=== PATIENT | female | born 1950 | race Caucasian/White ===

== ENCOUNTER 2020-09-28 15:46 | Inpatient (IN) ==
[2020-09-28] MEDS ORDERED: NS 1000 ML 1,000 ML ONE (16:21)
--- NOTE | 2020-09-28 16:33 | DR.DIZZY ---
HPI Time seen Time Seen by Provider: 09/28/20 16:33 PCP Primary Care Physician: DR. RENNY PERSON HPI Comment HPI Comment: PATIENT IS 70YR OLD FEMALE IN ER WITH COUGH, SOB, GENERALIZED WEAKNESS AND FEVER. PATIENT IS POSITIVE FOR COVID 19 VIRUS. SHE TOOK ANTIBIOTICS AND STERIOD AT HOME. CONDITION WORSE TODAY. HAVING GENERALIZED ACHES AND PAIN, 10/10. Complaint Chief Complaint Doctor Comments: GENERALIZED WEAKNESS, SOB, FEVER, COUGH AND COVID 19 VIRUS POSITIVE. Chief Complaint:: WEAKNESS, SHORT OF BREATH, FEVER, POSITIVE FOR COVID 09/21/2020 Self Treatment fo Chief Complaint: STEROIDS, ANTIBIOTICS, ZINC, TYLENOL COVID-19 Coronavirus risk:travel/contact w/high risk person: Yes Has patient experienced Coronavirus symptoms: Yes Coronavirus symptoms experienced: Fever, Coughing and Shortness of Breath Nurses Notes Reviewed Nurses Notes Review: Yes Source History Provided: Patient Mode of Arrival Mode of Arrival: Wheelchair Timing Onset of Chief Complaint: 09/21/20 Context Stroke Symptoms: Dizziness PMH PMH Past Medical History: Yes Past Medical History: Hypothyroidism Past Surgical History: Yes (UNKNOWN) Surgical History: Tonsillectomy Past Surgical History Comment: TUBAL, ADENOIDECTOMY Family History History of Family Medical Conditions: No Family Medical History Comment: PT UNABLE TO ANSWER Social History Does any household member use tobacco: No Do you use any recreational Drugs:: No Lives With: Spouse Lives Where: Home Infectious screening In the last 2 months have you had wt loss of >10#?: NO Have you had fever, night sweats or hemotysis?: No Have you traveled outside the country in the last 6 months?: No Isolation: Droplet ROS Review of Systems Constitutional: See HPI, Fever, Weakness, Fatigue and Loss of Appetite Eyes: No Symptoms Reported and See HPI ENTM: See HPI, Nose Discharge and Nose Congestion Respiratoy: See HPI, Moist Cough and Short of Breath; negative Wheezing Cardiovascular: No Symptoms Reported and See HPI; negative Chest Pain, Edema and Palpitations Gastrointestinal/Abdominal: No Symptoms Reported and See HPI; negative Abdominal Pain, Diarrhea, Nausea and Vomiting Genitourinary: No Symptoms Reported and See HPI; negative Discharge and Dysuria Neurological: See HPI, Headache and Weakness Musculoskeletal: See HPI, Back Pain and Muscle Pain Integumentary: Change in Color and Dryness; negative Rash and Juandice Hematologic/Lymphatic: See HPI and Easy Bruising; negative Swollen Glands Endocrine: See HPI and Decreased Appetite; negative Increased Thirst and Increased Urine Psychiatric: No Symptoms Reported and See HPI All Other Systems: Reviewed and Negative PE Vital Signs Vitals: Temperature 98.2 F Pulse Rate [Right Radial] 91 Pulse Rate 103 Respiratory Rate 18 Blood Pressure [Right Arm] 118/76 Blood Pressure 105/54 O2 Sat by Pulse Oximetry 83 General Limitations: No Limitations General Appearance: Alert and In No Apparent Distress Head Head Exam: Normal Inspection Eyes Eye exam: Normal Appearance and PERRL; negative Scleral Icterus and Conjunctival Injection Pupils: Regular, Round: Bilateral and Reactive: Bilateral Sclera/Conjunctival: Normal Inspection: Bilateral ENT ENT Exam: Normal Exam, Normal Oropharynx, Normal External Ear Exam and TM's Normal Bilaterally Neck Neck Exam: Normal Inspection, Full ROM and Trachea Midline; negative Tenderness and Lymphadenopathy Chest Chest Inspection: Normal Inspection and Symmetric Chest Wall Rise; negative Tenderness Respiratory Respiratory Exam: Normal Lung Sounds Bilat and Respiratory Distress; negative Accessory Muscle Use and Chest Wall Tenderness Respiratory Exam: Bilateral: Rhonchi and Lower: Rhonchi Cardiovascular Cardiovascular Exam: Regular Rate, Normal Rhythm and Normal Heart Sounds; negative Systolic Murmur and Diastolic Murmur Abdominal Exam Abdominal Exam: Normal Inspection, Normal Bowel Sounds and Soft; negative Tenderness Rectal Rectal Exam: Deferred Extremeties Extremities Exam: Normal Inspection, Full ROM and Normal Capillary Refill; negative Tenderness and Calf Tenderness Back Back Exam: Normal Inspection and Full ROM; negative (R) CVA Tenderness and (L) CVA Tenderness Neurologic Neurological Exam: Alert and Oriented X3 Psychiatric Psychiatric Exam: Normal Affect and Normal Mood Skin Skin Exam: Warm, Dry, Intact and Normal Color MDM Differential Diagnosis Differential Diagnosis: Dehydration, Electrolyte disorder, Myocardial infarction and Other (PNEUMONIA, UTI, CHF, COVID 19 VIRUS INFECTION.) ROR Labs Reviewed Laboratory Results Reviewed?: Yes Result Diagrams: 10/03/20 04:00 10/03/20 04:00 Laboratory: WBC 8.1 X10^3/uL (3.6-10.0) 09/28/20 16:30 RBC 4.00 X10^6/uL (3.5-5.4) 09/28/20 16:30 Hgb 11.4 g/dL (12.0-16.0) L 09/28/20 16:30 Hct 35.8 % (36.0-47.0) L 09/28/20 16:30 MCV 89.4 fL (80.0-100.0) 09/28/20 16:30 MCH 28.6 pg (27.0-34.0) 09/28/20 16: MCHC 32.0 g/dL (33.0-35.0) L 09/28/20 16:30 RDW 15.9 % (11.6-16.5) 09/28/20 16:30 Plt Count 275 X10^3/uL (150.0-450.0) 09/28/20 16:30 MPV 7.3 fL (7.4-11.0) L 09/28/20 16:30 Neut % (Auto) 78.3 % (42.0-75.0) H 09/28/20 16:30 Lymph % (Auto) 11.3 % (21.0-51.0) L 09/28/20 16:30 [place] % (Auto) 9.2 % (0.0-13.0) 09/28/20 16:30 Eos % (Auto) 1.1 % (0.9-2.9) 09/28/20 16:30 Baso % (Auto) 0.1 % (0.2-1.0) L 09/28/20 16:30 Neut # (Auto) 6.4 x10^3/uL (2.2-4.8) H 09/28/20 16:30 Lymph # (Auto) 0.9 X10^3/uL (1.3-2.9) L 09/28/20 16:30 [place] # (Auto) 0.7 x10^3/uL (0.3-0.8) 09/28/20 16:30 Eos # (Auto) 0.1 x10^3/uL (0.0-0.2) 09/28/20 16:30 Baso # (Auto) 0.0 X10^3/uL (0.0-0.1) 09/28/20 16:30 Absolute Nucleated RBC 0.0 /100WBC 09/28/20 16:30 D-Dimer 0.55 ug/ml (0.0-0.57) 09/28/20 18:11 Sample Site Right brachial 09/28/20 16:38 ABG pH 7.470 (7.35-7.45) H 09/28/20 16:38 ABG pCO2 46.0 mmHg (35.0-45.0) H 09/28/20 16:38 ABG pO2 42.0 mmHg (80.0-100.0) L* 09/28/20 16:38 ABG HCO3 33.5 mmol/L (22-26) H* 09/28/20 16:38 ABG O2 Saturation 81.0 % (90-100) L* 09/28/20 16:38 ABG Base Excess 8.7 mmol/L (-2.0-2.0) H 09/28/20 16:38 Lukas Test Na 09/28/20 16:38 A-a Gradient 50.0 mmHg 09/28/20 16:38 FiO2 21.0 09/28/20 16:38 Blood Gas Comments Nafisa well cb 09/28/20 16:38 Sodium 136 mmol/L (136-145) 09/28/20 16:30 Corrected Sodium TNP 09/28/20 16:30 Potassium 3.4 mmol/L (3.5-5.1) L 09/28/20 16:30 Chloride 100 mmol/L (98-107) 09/28/20 16:30 Carbon Dioxide 30.4 mmol/L (21-32) 09/28/20 16:30 BUN 24 mg/dL (7-18) H 09/28/20 16:30 Creatinine 0.76 mg/dL (0.55-1.02) 09/28/20 16:30 Est GFR (MDRD) Af Amer > 60 (>60) 09/28/20 16:30 Est GFR (MDRD) Non-Af > 60 (>60) 09/28/20 16:30 Glucose 105 mg/dL (65-99) H 09/28/20 16:30 Lactic Acid 1.3 mmol/L (0.4-2.0) 09/28/20 16:30 Calcium 9.0 mg/dL (8.5-10.1) 09/28/20 16:30 Corrected Calcium 10.0 mg/dL (8.5-10.1) 09/28/20 16:30 Ferritin 71 ng/mL (8-252) 09/28/20 16:30 Total Bilirubin 0.30 mg/dL (0.2-1.0) 09/28/20 16:30 AST 23 Units/L (15-37) 09/28/20 16:30 ALT 21 Units/L (12-78) 09/28/20 16:30 Alkaline Phosphatase 64 Units/L (46-116) 09/28/20 16:30 Creatine Kinase 21 Units/L (26-192) L 09/28/20 16:30 CK-MB (CK-2) < 1.0 ng/mL (0-4.0) 09/28/20 16:30 CK/CKMB % Calc 4.8 % (<4) 09/28/20 16:30 Troponin I < 0.02 ng/mL (0-1.5) 09/28/20 16:30 C-Reactive Protein 168.30 mg/L (0-3.0) H 09/28/20 16:30 Total Protein 6.7 g/dL (6.4-8.2) 09/28/20 16:30 Albumin 2.7 g/dL (3.4-5.0) L 09/28/20 16:30 Globulin 4.0 g/dL (2.5-4.5) 09/28/20 16:30 Albumin/Globulin Ratio 0.7 Ratio (1.1-2.1) L 09/28/20 16:30 SARS CoV-2 RNA Rapid ANDREA Positive (NEGATIVE) A 09/28/20 18:16 XRAY XRAY Interpreted by: Radiologist (REPORT NOTED AND DISCUSSED WITH PATIENT.) and Self EKG Rate: 99 Valentine: Normal Rhythm: NSR Block: None Hypertrophy: LAE ST: Nonsp Opioid Opioid Risk Tool Age (Charles box if 16-45): No Total: 0 Total Score Risk Category: Low Risk Copyright: [facility] predicting aberrant behaviors Diagnosis Discharge Problem: Hypoxia, COVID-19 virus infection Pneumonia Qualifiers: Pneumonia type: due to unspecified organism Laterality: bilateral Lung location: unspecified part of lung Qualified Code(s): J18.9 - Pneumonia, unspecified organism Instructions Instructions: Hyperglycemia, Kiou-lt-Asqd Home Oxygen Use, Adult Hand Washing, Uzte-bu-Lhpl Upper Respiratory Infection, Adult, Ackt-id-Iuwa Chronic Obstructive Pulmonary Disease, Cnro-kz-Uffv Droplet Precautions, Vscy-jt-Msjc Contact Precautions, Aryb-ij-Dlwq How to Use a Nebulizer, Adult Acute Respiratory Failure, Adult Blood Glucose Monitoring, Adult Community-Acquired Pneumonia, Adult, Ljbg-bp-Hera Forms: Precautions for COVID19 Patient Portal Social Distancing
[2020-09-28 16:42] LABS: BASOPHILS % (AUTO) 0.1 % (0.2-1.0); EOSINOPHILS # (AUTO) 0.1 x10^3/uL (0.0-0.2); EOSINOPHILS % (AUTO) 1.1 % (0.9-2.9); HEMATOCRIT 35.8 % (36.0-47.0); HEMOGLOBIN 11.4 g/dL (12.0-16.0); LYMPHOCYTES # (AUTO) 0.9 X10^3/uL (1.3-2.9); LYMPHOCYTES % (AUTO) 11.3 % (21.0-51.0); MEAN CORPUSCULAR HEMOGLOBIN 28.6 pg (27.0-34.0); MEAN CORPUSCULAR VOLUME 89.4 fL (80.0-100.0); MEAN PLATELET VOLUME 7.3 fL (7.4-11.0); MONOCYTES # (AUTO) 0.7 x10^3/uL (0.3-0.8); MONOCYTES % (AUTO) 9.2 % (0.0-13.0); NEUTROPHILS # (AUTO) 6.4 x10^3/uL (2.2-4.8); NEUTROPHILS % (AUTO) 78.3 % (42.0-75.0); PLATELET COUNT 275 X10^3/uL (150.0-450.0); RED CELL DISTRIBUTION WIDTH 15.9 % (11.6-16.5); WHITE BLOOD COUNT 8.1 X10^3/uL (3.6-10.0)
[2020-09-28 16:43] LABS: ABG BASE EXCESS 8.7 mmol/L (-2.0-2.0)
[2020-09-28 16:44] LABS: ABG HCO3 33.5 mmol/L (22-26)
--- NOTE | 2020-09-28 16:54 | RAD ---
HISTORYWEAKNESS, SHORT OF BREATH, FEVER, POSITIVE FOR COVID 09/21/2020STUDYCHEST, 1 VIEWCOMPARISONNone available.FINDINGSThe trachea is midline. The cardiac silhouette is enlarged. There abnormal, patchy, ground-glass, airspace, and interstitial opacities seen throughout the lung jarquin which would imply an active COVID-19 infection/pneumonia. Close interval radiographic follow-up is recommended to ensure complete resolution. The bony thorax is unremarkable.IMPRESSIONRadiographic findings of a widespread, relatively severe, COVID-19 infection/pneumonia.Electronically signed by: HARPER DELGADO III (Sep 28, 2020 16:52:44)
[2020-09-28 17:00] LABS: BLOOD UREA NITROGEN 24 mg/dL (7-18); CARBON DIOXIDE 30.4 mmol/L (21-32); CHLORIDE 100 mmol/L (98-107); CREATININE 0.76 mg/dL (0.55-1.02); SODIUM 136 mmol/L (136-145); TROPONIN I < 0.02 ng/mL (0-1.5); eGFR NON BLACK RACES > 60 (>60)
[2020-09-28] MEDS ORDERED: NS 1000 ML 1,000 ML IV SCH ×2 (17:00→21:42)
[2020-09-28 17:04] LABS: ALANINE AMINOTRANSFERASE 21 Units/L (12-78); ALBUMIN 2.7 g/dL (3.4-5.0); ALKALINE PHOSPHATASE 64 Units/L (46-116); ASPARTATE AMINO TRANSFERASE 23 Units/L (15-37); CKMB % 4.8 % (<4); CREATINE KINASE 21 Units/L (26-192); CREATINE KINASE MB < 1.0 ng/mL (0-4.0); TOTAL PROTEIN 6.7 g/dL (6.4-8.2)
[2020-09-28 17:06] LABS: LACTIC ACID 1.3 mmol/L (0.4-2.0)
[2020-09-28] MEDS ORDERED: LEVAQUIN PREMIX IV 750 MG 750 MG/150 ML BAG IV ONE ×2 (18:26→19:48)
[2020-09-28] MEDS ORDERED: SOLU-Medrol 125 MG VIAL IVP ONE (19:44)
[2020-09-28] MEDS ORDERED: SOLU-Medrol 125 MG VIAL ONE (19:47)
[2020-09-28] MEDS ORDERED: DUONEB 0.5 MG/3 MG (3 mL) NEB SCH (21:00)
[2020-09-28] MEDS ORDERED: TUSSIONEX PENNKINETIC SUSP PO PRN (21:42)
[2020-09-28] MEDS ORDERED: ZOFRAN INJ 4 MG VIAL ONE (21:45)
[2020-09-28] MEDS: ZOFRAN INJ 4 MG VIAL IVP PRN (21:50)
[2020-09-29] MEDS ORDERED: REMDESIVIR 200 MG in NS 250 ML IV 250 ML IV SCH ×2
[2020-09-29] MEDS: ZOSYN VIAL 3.375 GRAMS 3.375 G in NS 100 ML IV + SPIKE MINIBAG* 100 ML IV SCH ×3 (01:32→18:40)
[2020-09-29] MEDS: LOVENOX INJ 30 MG SYR SC SCH ×3 (01:32→21:05)
[2020-09-29] MEDS ORDERED: TYLENOL 325 MG TAB PO ONE (02:04)
[2020-09-29] MEDS: TYLENOL 325 MG TAB PO PRN (02:13)
[2020-09-29] MEDS: ASCORBIC ACID INJ MULTI-DOSE VIAL 1,500 MG in NS 100 ML IV 100 ML IV SCH ×4 (03:54→21:05)
[2020-09-29 04:08] LABS: BASOPHILS % (AUTO) 0.1 % (0.2-1.0); EOSINOPHILS % (AUTO) 0.1 % (0.9-2.9); HEMATOCRIT 33.1 % (36.0-47.0); HEMOGLOBIN 10.6 g/dL (12.0-16.0); LYMPHOCYTES # (AUTO) 0.4 X10^3/uL (1.3-2.9); LYMPHOCYTES % (AUTO) 7.3 % (21.0-51.0); MEAN CORPUSCULAR HEMOGLOBIN 28.6 pg (27.0-34.0); MEAN CORPUSCULAR VOLUME 89.2 fL (80.0-100.0); MEAN PLATELET VOLUME 7.6 fL (7.4-11.0); MONOCYTES # (AUTO) 0.2 x10^3/uL (0.3-0.8); MONOCYTES % (AUTO) 2.7 % (0.0-13.0); NEUTROPHILS # (AUTO) 4.9 x10^3/uL (2.2-4.8); NEUTROPHILS % (AUTO) 89.8 % (42.0-75.0); PLATELET COUNT 229 X10^3/uL (150.0-450.0); RED BLOOD COUNT 3.71 X10^6/uL (3.5-5.4); RED CELL DISTRIBUTION WIDTH 16.2 % (11.6-16.5); WHITE BLOOD COUNT 5.5 X10^3/uL (3.6-10.0)
[2020-09-29 04:20] VITALS: BMI 26.5
[2020-09-29 04:29] LABS: ALANINE AMINOTRANSFERASE 16 Units/L (12-78); ALBUMIN 2.4 g/dL (3.4-5.0); ALKALINE PHOSPHATASE 56 Units/L (46-116); ASPARTATE AMINO TRANSFERASE 18 Units/L (15-37); BLOOD UREA NITROGEN 14 mg/dL (7-18); CALCIUM 8.2 mg/dL (8.5-10.1); CARBON DIOXIDE 29.7 mmol/L (21-32); CHLORIDE 102 mmol/L (98-107); COR CA(FOR HYPOALB) 9.5 mg/dL (8.5-10.1); COR NA(FOR HYPERGLY) 140 mmol/L (136-145); CREATININE 0.71 mg/dL (0.55-1.02); SODIUM 138 mmol/L (136-145); TOTAL PROTEIN 6.2 g/dL (6.4-8.2); TROPONIN I < 0.02 ng/mL (0-1.5); eGFR NON BLACK RACES > 60 (>60)
[2020-09-29] MEDS ORDERED: SOLU-Medrol 40 MG VIAL IVP SCH ×2 (06:00→09:00)
[2020-09-29] MEDS ORDERED: HumuLIN R SC PRN (08:38)
--- NOTE | 2020-09-29 08:41 | DR.H&P ---
H&P History & Physical for Day of: H&P Date: 09/29/20 Chief Complaint Chief Complaint: shortness of breath, weakness Allergies Allergies Allergy/AdvReac Type Severity Reaction Status Date / Time oxycodone Allergy Verified 09/28/20 19:21 zolpidem [From Ambien] Allergy Verified 09/28/20 19:21 History of Present Illness History of Present Illness: Ms. Jessica is a 70y/o female with a PMH of chronic pain disorder, anxiety and hypothyroidism presented with weakness, SOB and fever. She tested positive for COVID on 09/21/20. She completed a course of abx and steroids but reports her symptoms were gradually worsening. She was having difficulty breathing yesterday so decided to come to the ED. She is currently on non-rebreather O2, sats > 90%. She appears comfortable in bed with no labored breathing. She does not use O2 at home. She reports decreased appetite, denies N/V/D. ED work-up - CXR: severe bilateral pulmonary infiltrates suggestive of COVID-19 infection - D-dimer (-) COVID-19 (+) - Labs: WBC 5.5 Hgb 10.6 Trop x 3 (-) CRP 168 AB.47/46/42/33 on room air, sats 81% She received a dose of Zosyn, remdesivir and solumedrol. Plan: Continue Remdesivir and Zosyn. Continue telemetry monitoring. Repeat CXR today. Echo ordered to eval LV function. Stop IVF. Will give one dose of lasix due to diffuse crackles on lung exam. Start decadron, vitamin support and DVT Ppx. Continue aggressive pulmonary toilet with bronchodilators. Wean O2 as tolerated, keep sats > 92%. Resume home medications. 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 Surgery and Tonsillectomy Family History Family Medical History: Diabetes Mellitus, Cancer, [place], Coronary Artery Disease, Heart Failure, Sudden Cardiac and Hypertension Social History Does patient currently use any type of tobacco product: No Have you used tobacco products in the last 12 months: No Type of Tobacco Use: None Does any household member use tobacco: No Alcohol Use: None Drug Use: None Prescription drug monitoring program results: PDMP reviewed and no concerns identified Medications Home Medications: oxycodone Allergy (Verified 09/28/20 19:21) zolpidem [From Ambien] Allergy (Verified 09/28/20 19:21) Labs Result Diagrams: 09/29/20 03:55 09/29/20 03:55 Labs: Laboratory WBC 5.5 X10^3/uL (3.6-10.0) 09/29/20 03:55 RBC 3.71 X10^6/uL (3.5-5.4) 09/29/20 03:55 Hgb 10.6 g/dL (12.0-16.0) L 09/29/20 03:55 Hct 33.1 % (36.0-47.0) L 09/29/20 03:55 MCV 89.2 fL (80.0-100.0) 09/29/20 03:55 MCH 28.6 pg (27.0-34.0) 09/29/20 03:55 MCHC 32.0 g/dL (33.0-35.0) L 09/29/20 03:55 RDW 16.2 % (11.6-16.5) 09/29/20 03:55 Plt Count 229 X10^3/uL (150.0-450.0) 09/29/20 03:55 MPV 7.6 fL (7.4-11.0) 09/29/20 03:55 Neut % (Auto) 89.8 % (42.0-75.0) H 09/29/20 03:55 Lymph % (Auto) 7.3 % (21.0-51.0) L 09/29/20 03:55 [place] % (Auto) 2.7 % (0.0-13.0) 09/29/20 03:55 Eos % (Auto) 0.1 % (0.9-2.9) L 09/29/20 03:55 Baso % (Auto) 0.1 % (0.2-1.0) L 09/29/20 03:55 Neut # (Auto) 4.9 x10^3/uL (2.2-4.8) H 09/29/20 03:55 Lymph # (Auto) 0.4 X10^3/uL (1.3-2.9) L 09/29/20 03:55 [place] # (Auto) 0.2 x10^3/uL (0.3-0.8) L 09/29/20 03:55 Eos # (Auto) 0.0 x10^3/uL (0.0-0.2) 09/29/20 03:55 Baso # (Auto) 0.0 X10^3/uL (0.0-0.1) 09/29/20 03:55 Absolute Nucleated RBC 0.1 /100WBC 09/29/20 03:55 D-Dimer 0.55 ug/ml (0.0-0.57) 09/28/20 18:11 Sample Site Right brachial 09/28/20 16:38 ABG pH 7.470 (7.35-7.45) H 09/28/20 16:38 ABG pCO2 46.0 mmHg (35.0-45.0) H 09/28/20 16:38 ABG pO2 42.0 mmHg (80.0-100.0) L* 09/28/20 16:38 ABG HCO3 33.5 mmol/L (22-26) H* 09/28/20 16:38 ABG O2 Saturation 81.0 % (90-100) L* 09/28/20 16:38 ABG Base Excess 8.7 mmol/L (-2.0-2.0) H 09/28/20 16:38 Lukas Test Na 09/28/20 16:38 A-a Gradient 50.0 mmHg 09/28/20 16:38 FiO2 21.0 09/28/20 16:38 Blood Gas Comments Nafisa well cb 09/28/20 16:38 Sodium 138 mmol/L (136-145) 09/29/20 03:55 Corrected Sodium 140 mmol/L (136-145) 09/29/20 03:55 Potassium 4.2 mmol/L (3.5-5.1) 09/29/20 03:55 Chloride 102 mmol/L (98-107) 09/29/20 03:55 Carbon Dioxide 29.7 mmol/L (21-32) 09/29/20 03:55 BUN 14 mg/dL (7-18) 09/29/20 03:55 Creatinine 0.71 mg/dL (0.55-1.02) 09/29/20 03:55 Est GFR (MDRD) Af Amer > 60 (>60) 09/29/20 03:55 Est GFR (MDRD) Non-Af > 60 (>60) 09/29/20 03:55 Glucose 170 mg/dL (65-99) H 09/29/20 03:55 Lactic Acid 1.3 mmol/L (0.4-2.0) 09/28/20 16:30 Calcium 8.2 mg/dL (8.5-10.1) L 09/29/20 03:55 Corrected Calcium 9.5 mg/dL (8.5-10.1) 09/29/20 03:55 Ferritin 71 ng/mL (8-252) 09/28/20 16:30 Total Bilirubin 0.20 mg/dL (0.2-1.0) 09/29/20 03:55 AST 18 Units/L (15-37) 09/29/20 03:55 ALT 16 Units/L (12-78) 09/29/20 03:55 Alkaline Phosphatase 56 Units/L (46-116) 09/29/20 03:55 Creatine Kinase 21 Units/L (26-192) L 09/28/20 16:30 CK-MB (CK-2) < 1.0 ng/mL (0-4.0) 09/28/20 16:30 CK/CKMB % Calc 4.8 % (<4) 09/28/20 16:30 Troponin I < 0.02 ng/mL (0-1.5) 09/29/20 03:55 C-Reactive Protein 168.30 mg/L (0-3.0) H 09/28/20 16:30 Total Protein 6.2 g/dL (6.4-8.2) L 09/29/20 03:55 Albumin 2.4 g/dL (3.4-5.0) L 09/29/20 03:55 Globulin 3.8 g/dL (2.5-4.5) 09/29/20 03:55 Albumin/Globulin Ratio 0.6 Ratio (1.1-2.1) L 09/29/20 03:55 SARS CoV-2 RNA Rapid ANDREA Positive (NEGATIVE) A 09/28/20 18:16 Review of Systems Constitutional: Fever, Weakness and Malaise Eyes: No Symptoms Reported ENT: Nose Congestion Respiratory: Cough, Shortness of Breath, SOB with Excertion and Sputum Cardiovascular: No Symptoms Reported Gastrointestinal: No Symptoms Reported Genitourinary: No Symptoms Reported Musculoskeletal: Back Pain Skin: No Symptoms Reported Neurological: No Symptoms Reported Physical Exam Vital Signs: Temperature 97.9 F Pulse Rate [Right Radial] 78 Pulse Rate 82 Respiratory Rate 35 Blood Pressure [Right Arm] 140/65 Blood Pressure 105/54 O2 Sat by Pulse Oximetry 97 Oriented: Normal Eyes: Normal Ear: Normal Nose: Normal Throat: Normal Respiratory: Diminished Throughout and Rales Throughout Cardiovascular: Normal Auscultation: Bowel Sounds: Normal Palpation: Normal Tenderness: Normal Skin: Normal Musculoskeletal: Normal Psychiatric: Anxiety Mood Description: Anxious Affect: Anxious Speech Pattern: Clear and Appropriate Assessment/Plan (1) Acute respiratory failure with hypoxia: Status: Acute (2) Pneumonia due to COVID-19 virus: Status: Acute (3) Hypothyroidism: Qualifiers: Hypothyroidism type: unspecified Qualified Code(s): E03.9 - Hypothyroidism, unspecified Status: Acute (4) Hyperglycemia: Status: Acute (5) Anemia: Qualifiers: Anemia type: unspecified type Qualified Code(s): D64.9 - Anemia, u nspecified Status: Acute (6) Chronic anxiety: Status: Acute Review H&P Reviewed: Yes Patient was examined?: Yes
[2020-09-29] MEDS ORDERED: PEPCID TAB 20 MG PO SCH (09:00)
[2020-09-29] MEDS ORDERED: VITAMIN D (1.25MG) PO SCH (09:00)
[2020-09-29] MEDS ORDERED: VITAMIN A PO SCH (09:00)
[2020-09-29] MEDS ORDERED: VSL#3 PO SCH (09:00)
[2020-09-29] MEDS ORDERED: LASIX IVP SCH (09:00)
[2020-09-29] MEDS: DECADRON TAB PO SCH (09:10)
[2020-09-29] MEDS: ZINC SULFATE PO SCH ×2 (09:10→21:05)
[2020-09-29] MEDS: LIPITOR TAB 40 MG PO SCH (09:12)
[2020-09-29] MEDS: ROBITUSSIN DM PO SCH ×4 (09:13→21:05)
[2020-09-29] MEDS: TRICOR TAB 160 MG PO SCH (09:13)
[2020-09-29] MEDS: PULMICORT NEB TX 0.5 MG NEB SCH (10:10)
[2020-09-29] MEDS: DUONEB 0.5 MG/3 MG (3 mL) NEB SCH ×3 (10:10→17:15)
[2020-09-29] MEDS: CELEXA PO SCH (14:16)
[2020-09-29] MEDS: NORCO 10/325 TAB PO PRN (14:20)
--- NOTE | 2020-09-29 16:09 | RAD ---
HISTORYCOVID, HYPOXIA, RALES ON EXAMSTUDYCHEST x-ray, 1 VIEWCOMPARISONX-ray 09/28/2020FINDINGSBilateral pneumonia is similar to prior study. There is diminished inspiration compared to prior study. Heart is normal in size. No pneumothorax or pleural effusion is seen.IMPRESSIONBilateral pneumonia is similar to prior study.Electronically signed by: Jose Powell (Sep 29, 2020 16:07:17)
[2020-09-29] MEDS: XANAX PO PRN (21:05)
[2020-09-29] MEDS: SINEquan PO SCH (21:05)
[2020-09-29] MEDS: ZOFRAN INJ 4 MG VIAL IVP PRN (22:09)
[2020-09-29] MEDS ORDERED: IVERMECTIN PO ONE (22:17)
[2020-09-29] MEDS: REMDESIVIR 100 MG in NS 250 ML IV 250 ML IV SCH (22:43)
[2020-09-30] MEDS: DUONEB 0.5 MG/3 MG (3 mL) NEB SCH ×5 (02:07→20:00)
[2020-09-30] MEDS: PULMICORT NEB TX 0.5 MG NEB SCH ×3 (02:08→20:00)
[2020-09-30] MEDS: ASCORBIC ACID INJ MULTI-DOSE VIAL 1,500 MG in NS 100 ML IV 100 ML IV SCH ×2 (02:32→09:28)
[2020-09-30] MEDS: NORCO 10/325 TAB PO PRN ×2 (02:32→17:43)
[2020-09-30] MEDS: ZOSYN VIAL 3.375 GRAMS 3.375 G in NS 100 ML IV + SPIKE MINIBAG* 100 ML IV SCH ×2 (04:08→09:00)
[2020-09-30 05:58] LABS: ABG BASE EXCESS 6.7 mmol/L (-2.0-2.0)
[2020-09-30 05:59] LABS: ABG HCO3 32.4 mmol/L (22-26)
[2020-09-30 06:26] LABS: BASOPHILS % (AUTO) 0.2 % (0.2-1.0); EOSINOPHILS % (AUTO) 0.1 % (0.9-2.9); HEMATOCRIT 28.5 % (36.0-47.0); HEMOGLOBIN 9.3 g/dL (12.0-16.0); LYMPHOCYTES # (AUTO) 0.8 X10^3/uL (1.3-2.9); LYMPHOCYTES % (AUTO) 7.8 % (21.0-51.0); MEAN CORPUSCULAR HEMOGLOBIN 28.9 pg (27.0-34.0); MEAN CORPUSCULAR HGB CONC 32.5 g/dL (33.0-35.0); MEAN CORPUSCULAR VOLUME 88.9 fL (80.0-100.0); MEAN PLATELET VOLUME 7.6 fL (7.4-11.0); MONOCYTES # (AUTO) 0.7 x10^3/uL (0.3-0.8); NEUTROPHILS # (AUTO) 8.2 x10^3/uL (2.2-4.8); NEUTROPHILS % (AUTO) 84.9 % (42.0-75.0); PLATELET COUNT 284 X10^3/uL (150.0-450.0); RED BLOOD COUNT 3.21 X10^6/uL (3.5-5.4); RED CELL DISTRIBUTION WIDTH 16.3 % (11.6-16.5); WHITE BLOOD COUNT 9.7 X10^3/uL (3.6-10.0)
[2020-09-30 06:39] LABS: BLOOD UREA NITROGEN 13 mg/dL (7-18); CARBON DIOXIDE 29.6 mmol/L (21-32); CHLORIDE 106 mmol/L (98-107); COR NA(FOR HYPERGLY) 141 mmol/L (136-145); CREATININE 0.69 mg/dL (0.55-1.02); SODIUM 141 mmol/L (136-145); eGFR NON BLACK RACES > 60 (>60)
--- NOTE | 2020-09-30 06:56 | RAD ---
HISTORYFollow-up COVID-19STUDYChest AP [id number]/30/2020FINDINGSThe heart is upper limits normal in size. No congestive heart failure is noted. Diffuse bilateral interstitial, ground-glass and alveolar infiltrates are again identified not significantly changed from the prior examination considering a difference in film technique. No pleural effusions are identified. Bony thorax is unremarkable.IMPRESSIONNo significant change from the prior examinationElectronically signed by: ZACHARY RAY (Sep 30, 2020 06:54:20)
[2020-09-30] MEDS: CELEXA PO SCH (09:30)
[2020-09-30] MEDS: ZINC SULFATE PO SCH ×2 (09:30→20:47)
[2020-09-30] MEDS: VITAMIN D3 125 mcg (5,000 UNITS) PO SCH (09:37)
[2020-09-30] MEDS: LOVENOX INJ 30 MG SYR SC SCH ×2 (09:37→20:48)
[2020-09-30] MEDS: SYNTHROID 100 mcg TAB PO SCH (09:38)
[2020-09-30] MEDS: ROBITUSSIN DM PO SCH ×4 (09:38→20:49)
[2020-09-30] MEDS: DECADRON TAB PO SCH (09:38)
[2020-09-30] MEDS: TRICOR TAB 160 MG PO SCH (09:39)
[2020-09-30] MEDS: PriLOSEC PO SCH (09:39)
[2020-09-30] MEDS: VITAMIN A PO SCH (09:40)
[2020-09-30] MEDS: LIPITOR TAB 40 MG PO SCH (09:42)
[2020-09-30] MEDS ORDERED: IVERMECTIN PO ONE (11:32)
[2020-09-30] MEDS ORDERED: IVERMECTIN PO NR (14:00)
[2020-09-30] MEDS: ASCORBIC ACID INJ MULTI-DOSE VIAL 1,500 MG in NS 50 ML IV 50 ML IV SCH ×2 (16:00→20:46)
[2020-09-30] MEDS: ZOSYN VIAL 3.375 GRAMS 3.375 G in NS 50 ML IV + SPIKE MINIBAG* 50 ML IV SCH ×2 (17:42→21:06)
[2020-09-30] MEDS ORDERED: MAALOX or MYLANTA ONE (20:45)
[2020-09-30] MEDS: SINEquan PO SCH (20:48)
[2020-09-30] MEDS: MAALOX or MYLANTA PO PRN (20:49)
[2020-09-30] MEDS: REMDESIVIR 100 MG in NS 250 ML IV 250 ML IV SCH (21:06)
[2020-10-01] MEDS: ZOFRAN INJ 4 MG VIAL IVP PRN (00:01)
[2020-10-01] MEDS: XANAX PO PRN (00:18)
[2020-10-01] MEDS: ASCORBIC ACID INJ MULTI-DOSE VIAL 1,500 MG in NS 50 ML IV 50 ML IV SCH ×4 (02:43→22:22)
[2020-10-01] MEDS: ZOSYN VIAL 3.375 GRAMS 3.375 G in NS 50 ML IV + SPIKE MINIBAG* 50 ML IV SCH ×3 (05:38→22:24)
[2020-10-01] MEDS: NORCO 10/325 TAB PO PRN ×2 (05:55→22:25)
[2020-10-01 06:16] LABS: BASOPHILS % (AUTO) 0 % (0.2-1.0); HEMATOCRIT 28.5 % (36.0-47.0); HEMOGLOBIN 9.5 g/dL (12.0-16.0); LYMPHOCYTES # (AUTO) 0.9 X10^3/uL (1.3-2.9); LYMPHOCYTES % (AUTO) 8.6 % (21.0-51.0); MEAN CORPUSCULAR HEMOGLOBIN 29.8 pg (27.0-34.0); MEAN CORPUSCULAR HGB CONC 33.5 g/dL (33.0-35.0); MEAN CORPUSCULAR VOLUME 89.2 fL (80.0-100.0); MEAN PLATELET VOLUME 7.5 fL (7.4-11.0); MONOCYTES # (AUTO) 0.7 x10^3/uL (0.3-0.8); MONOCYTES % (AUTO) 6.5 % (0.0-13.0); NEUTROPHILS # (AUTO) 8.5 x10^3/uL (2.2-4.8); NEUTROPHILS % (AUTO) 84.9 % (42.0-75.0); PLATELET COUNT 286 X10^3/uL (150.0-450.0); RED CELL DISTRIBUTION WIDTH 16.1 % (11.6-16.5); WHITE BLOOD COUNT 10.1 X10^3/uL (3.6-10.0)
[2020-10-01 06:19] LABS: BLOOD UREA NITROGEN 16 mg/dL (7-18); CALCIUM 8.3 mg/dL (8.5-10.1); CARBON DIOXIDE 29.3 mmol/L (21-32); CHLORIDE 106 mmol/L (98-107); CREATININE 0.62 mg/dL (0.55-1.02); SODIUM 141 mmol/L (136-145); eGFR NON BLACK RACES > 60 (>60)
[2020-10-01] MEDS ORDERED: ASCORBIC ACID INJ MULTI-DOSE VIAL IV ONE (08:22)
[2020-10-01] MEDS: ZINC SULFATE PO SCH ×2 (08:45→22:25)
[2020-10-01] MEDS: ROBITUSSIN DM PO SCH ×4 (08:45→22:24)
[2020-10-01] MEDS: LOVENOX INJ 30 MG SYR SC SCH ×2 (08:46→22:23)
[2020-10-01] MEDS: VITAMIN D3 125 mcg (5,000 UNITS) PO SCH (08:46)
[2020-10-01] MEDS: LIPITOR TAB 40 MG PO SCH (08:47)
[2020-10-01] MEDS: SYNTHROID 100 mcg TAB PO SCH (08:47)
[2020-10-01] MEDS: CELEXA PO SCH (08:48)
[2020-10-01] MEDS: DECADRON TAB PO SCH (08:48)
[2020-10-01] MEDS: TRICOR TAB 160 MG PO SCH (08:48)
[2020-10-01] MEDS: PriLOSEC PO SCH (08:49)
[2020-10-01] MEDS: VITAMIN A PO SCH (08:49)
[2020-10-01] MEDS: PULMICORT NEB TX 0.5 MG NEB SCH ×2 (09:24→21:00)
[2020-10-01] MEDS: DUONEB 0.5 MG/3 MG (3 mL) NEB SCH ×4 (09:24→21:00)
[2020-10-01] MEDS ORDERED: NS 500 ML IV 500 ML IV PRN (10:41)
[2020-10-01] MEDS: REMDESIVIR 100 MG in NS 250 ML IV 250 ML IV SCH (22:24)
[2020-10-01] MEDS: SINEquan PO SCH (22:24)
[2020-10-02] MEDS: MAALOX or MYLANTA PO PRN
[2020-10-02] MEDS: ZOFRAN INJ 4 MG VIAL IVP PRN ×3 (00:55→21:31)
[2020-10-02] MEDS: ASCORBIC ACID INJ MULTI-DOSE VIAL 1,500 MG in NS 50 ML IV 50 ML IV SCH ×4 (03:02→21:30)
[2020-10-02] MEDS: ZOSYN VIAL 3.375 GRAMS 3.375 G in NS 50 ML IV + SPIKE MINIBAG* 50 ML IV SCH ×3 (05:29→21:31)
[2020-10-02 06:35] LABS: BASOPHILS % (AUTO) 0.1 % (0.2-1.0); EOSINOPHILS % (AUTO) 0.1 % (0.9-2.9); HEMATOCRIT 27.2 % (36.0-47.0); LYMPHOCYTES # (AUTO) 0.9 X10^3/uL (1.3-2.9); MEAN CORPUSCULAR HEMOGLOBIN 29.2 pg (27.0-34.0); MEAN CORPUSCULAR HGB CONC 33.1 g/dL (33.0-35.0); MEAN CORPUSCULAR VOLUME 88.2 fL (80.0-100.0); MEAN PLATELET VOLUME 7.4 fL (7.4-11.0); MONOCYTES # (AUTO) 0.6 x10^3/uL (0.3-0.8); NEUTROPHILS % (AUTO) 81.8 % (42.0-75.0); PLATELET COUNT 271 X10^3/uL (150.0-450.0); RED BLOOD COUNT 3.09 X10^6/uL (3.5-5.4); RED CELL DISTRIBUTION WIDTH 16.4 % (11.6-16.5); WHITE BLOOD COUNT 8.5 X10^3/uL (3.6-10.0)
[2020-10-02 06:44] LABS: BLOOD UREA NITROGEN 17 mg/dL (7-18); CALCIUM 8.1 mg/dL (8.5-10.1); CARBON DIOXIDE 29.8 mmol/L (21-32); CHLORIDE 105 mmol/L (98-107); CREATININE 0.58 mg/dL (0.55-1.02); SODIUM 141 mmol/L (136-145); eGFR NON BLACK RACES > 60 (>60)
[2020-10-02] MEDS: VITAMIN D3 125 mcg (5,000 UNITS) PO SCH (09:00)
[2020-10-02] MEDS: ZINC SULFATE PO SCH ×2 (09:01→21:32)
[2020-10-02] MEDS: LOVENOX INJ 30 MG SYR SC SCH ×2 (09:01→21:33)
[2020-10-02] MEDS: SYNTHROID 100 mcg TAB PO SCH (09:01)
[2020-10-02] MEDS: DECADRON TAB PO SCH (09:01)
[2020-10-02] MEDS: TRICOR TAB 160 MG PO SCH (09:01)
[2020-10-02] MEDS: PriLOSEC PO SCH (09:01)
[2020-10-02] MEDS: ROBITUSSIN DM PO SCH ×4 (09:01→21:32)
[2020-10-02] MEDS: VITAMIN A PO SCH (09:02)
[2020-10-02] MEDS: CELEXA PO SCH (09:02)
[2020-10-02] MEDS: DUONEB 0.5 MG/3 MG (3 mL) NEB SCH ×4 (09:36→20:37)
[2020-10-02] MEDS: PULMICORT NEB TX 0.5 MG NEB SCH ×2 (09:36→20:37)
[2020-10-02] MEDS: LIPITOR TAB 40 MG PO SCH (09:43)
[2020-10-02] MEDS: TYLENOL 325 MG TAB PO PRN (09:47)
[2020-10-02] MEDS ORDERED: NS 50 ML IV + SPIKE MINIBAG* 50 ML IV ONE (12:46)
[2020-10-02] MEDS: REMDESIVIR 100 MG in NS 250 ML IV 250 ML IV SCH (21:31)
[2020-10-02] MEDS: XANAX PO PRN (21:32)
[2020-10-02] MEDS: SINEquan PO SCH (21:32)
[2020-10-03] MEDS: ASCORBIC ACID INJ MULTI-DOSE VIAL 1,500 MG in NS 50 ML IV 50 ML IV SCH ×2 (03:30→09:54)
[2020-10-03] MEDS: ZOSYN VIAL 3.375 GRAMS 3.375 G in NS 50 ML IV + SPIKE MINIBAG* 50 ML IV SCH (05:30)
[2020-10-03 06:03] LABS: BASOPHILS % (AUTO) 0.2 % (0.2-1.0); HEMATOCRIT 27.6 % (36.0-47.0); LYMPHOCYTES # (AUTO) 0.8 X10^3/uL (1.3-2.9); LYMPHOCYTES % (AUTO) 11.3 % (21.0-51.0); MEAN CORPUSCULAR HEMOGLOBIN 29.1 pg (27.0-34.0); MEAN CORPUSCULAR HGB CONC 32.4 g/dL (33.0-35.0); MEAN CORPUSCULAR VOLUME 89.6 fL (80.0-100.0); MEAN PLATELET VOLUME 7.6 fL (7.4-11.0); MONOCYTES # (AUTO) 0.5 x10^3/uL (0.3-0.8); MONOCYTES % (AUTO) 7.6 % (0.0-13.0); NEUTROPHILS # (AUTO) 5.7 x10^3/uL (2.2-4.8); NEUTROPHILS % (AUTO) 80.9 % (42.0-75.0); PLATELET COUNT 268 X10^3/uL (150.0-450.0); RED BLOOD COUNT 3.08 X10^6/uL (3.5-5.4); RED CELL DISTRIBUTION WIDTH 16.2 % (11.6-16.5)
[2020-10-03 06:04] LABS: BLOOD UREA NITROGEN 15 mg/dL (7-18); CALCIUM 8.1 mg/dL (8.5-10.1); CARBON DIOXIDE 28.7 mmol/L (21-32); CHLORIDE 104 mmol/L (98-107); COR NA(FOR HYPERGLY) 139 mmol/L (136-145); CREATININE 0.77 mg/dL (0.55-1.02); SODIUM 139 mmol/L (136-145); eGFR NON BLACK RACES > 60 (>60)
[2020-10-03] MEDS: VITAMIN A PO SCH (08:15)
[2020-10-03] MEDS: VITAMIN D3 125 mcg (5,000 UNITS) PO SCH (08:15)
[2020-10-03] MEDS: LOVENOX INJ 30 MG SYR SC SCH (08:15)
[2020-10-03] MEDS: ROBITUSSIN DM PO SCH ×2 (08:15→12:53)
[2020-10-03] MEDS: CELEXA PO SCH (08:16)
[2020-10-03] MEDS: DECADRON TAB PO SCH (08:16)
[2020-10-03] MEDS: TRICOR TAB 160 MG PO SCH (08:16)
[2020-10-03] MEDS: ZINC SULFATE PO SCH (08:16)
[2020-10-03] MEDS: SYNTHROID 100 mcg TAB PO SCH (08:16)
[2020-10-03] MEDS: PriLOSEC PO SCH (08:16)
[2020-10-03] MEDS: LIPITOR TAB 40 MG PO SCH (08:17)
[2020-10-03] MEDS: DUONEB 0.5 MG/3 MG (3 mL) NEB SCH ×2 (09:16→12:35)
[2020-10-03] MEDS: PULMICORT NEB TX 0.5 MG NEB SCH (09:16)
[2020-10-03] MEDS ORDERED: NS 50 ML IV 50 ML IV ONE (09:39)
[2020-10-03] MEDS ORDERED: ASCORBIC ACID INJ MULTI-DOSE VIAL IV ONE (09:53)
[2020-10-03 14:17] VITALS: BP 118/73
== END 2020-10-03 14:45 | disposition home or self-care (01) | DRG 177 ==
LOC: ER 16:02 → MED/SURG 19:35 → ICU 21:35 → OBS 21:36 → ICU 21:42
PROVIDERS: ADMIT Family Medicine; ATTEND Family Medicine
DX: D64.9 Anemia, unspecified; F41.8 Other specified anxiety disorders; E03.8 Other specified hypothyroidism; U07.1 COVID-19; R79.82 Elevated C-reactive protein (CRP); J12.89 Other viral pneumonia; R73.9 Hyperglycemia, unspecified; J96.01 Acute respiratory failure with hypoxia; R79.89 Other specified abnormal findings of blood chemistry; R26.89 Other abnormalities of gait and mobility